=== PATIENT | male | born 1965 | race Caucasian/White ===

== ENCOUNTER 2016-05-12 05:26 | Inpatient (IN) | payer OTHER ==
[2016-05-12 06:27] LABS: ABSOLUTE EOSINOPHILS # (AUTO) 0.1 10^3/uL (0.0-0.6); ABSOLUTE LYMPHOCYTES (AUTO) 1.7 10^3/uL (0.5-4.7); ABSOLUTE NEUT (AUTO) 15.8 10^3/uL (1.7-8.2); BASOPHILS % (AUTO) 0.3 % (0-2); EOSINOPHILS % (AUTO) 0.5 % (0-6); HEMATOCRIT 38.2 % (37.9-51.0); HEMOGLOBIN 12.8 g/dL (13.5-17.0); HGB HCT DIFFERENCE 0.2; LYMPHOCYTES % (AUTO) 9.1 % (13-45); MEAN CORPUSCULAR HEMOGLOBIN 29.4 pg (27.0-33.4); MEAN CORPUSCULAR HGB CONC 33.4 g/dL (32.0-36.0); MEAN CORPUSCULAR VOLUME 88 fl (80-97); MONOCYTES % (AUTO) 5.5 % (3-13); RED BLOOD COUNT 4.34 10^6/uL (4.35-5.55); RED CELL DISTRIBUTION WIDTH 14.6 % (11.5-14.0); SEGMENTED NEUTROPHILS % (AUTO) 84.6 % (42-78); WHITE BLOOD COUNT 18.7 10^3/uL (4.0-10.5)
[2016-05-12 06:41] LABS: ALANINE AMINOTRANSFERASE 20 U/L (21-72); ALBUMIN 3.5 g/dL (3.5-5.0); ALKALINE PHOSPHATASE 88 U/L (38-126); ANION GAP 10 (5-19); ASPARTATE AMINO TRANSFERASE 16 U/L (17-59); BILIRUBIN,TOTAL 0.8 mg/dL (0.2-1.3); BLOOD UREA NITROGEN 21 mg/dL (7-20); CALCIUM 9.3 mg/dL (8.4-10.2); CARBON DIOXIDE 26 mmol/L (22-30); CHLORIDE 105 mmol/L (98-107); CREATINE KINASE 141 U/L (55-170); CREATININE RESULT 1.13 mg/dL (0.52-1.25); GLUCOSE 116 mg/dL (75-110); POTASSIUM 3.5 mmol/L (3.6-5.0); SODIUM 140.9 mmol/L (137-145); TOTAL PROTEIN 5.8 g/dL (6.3-8.2)
[2016-05-12 06:51] LABS: CREATINE KINASE MB 1.04 ng/mL (<4.55)
[2016-05-12 06:52] LABS: TROPONIN I < 0.012 ng/mL
[2016-05-12 07:10] LABS: APPEARANCE,URINE SLIGHTLY-CLOUDY; BILIRUBIN,URINE NEGATIVE (NEGATIVE); GLUCOSE, URINE NEGATIVE (NEGATIVE); KETONES,URINE NEGATIVE (NEGATIVE); LEUKOCYTE ESTERASE,URINE TRACE (NEGATIVE); NITRITE,URINE NEGATIVE (NEGATIVE); PROTEIN,URINE NEGATIVE (NEGATIVE); URINE SPECIFIC GRAVITY 1.018; UROBILINOGEN,URINE NEGATIVE mg/dL (<2.0)
--- NOTE | 2016-05-12 08:14 | EKG REPORT ---
SEVERITY:- ABNORMAL ECG - SINUS RHYTHM CONSIDER ANTEROSEPTAL INFARCT NONSPECIFIC T ABNORMALITIES, LATERAL LEADS BORDERLINE PROLONGED QT INTERVAL : Confirmed by: Rosibel Hercules MD 12-May-2016 08:13:52
[2016-05-12] MEDS ORDERED: NORMAL SALINE 1000 ML 1,000 ML IV ONE ×2 (08:32→11:47)
[2016-05-12] MEDS ORDERED: METOCLOPRAMIDE HCL ORAL SOLN 10 MG/10 ML UDCUP PO ONE (08:32)
[2016-05-12] MEDS ORDERED: LIDOCAINE 2% VISCOUS SOLN 20 ML UDCUP PO ONE (08:32)
[2016-05-12] MEDS ORDERED: MAG HYDROX/AL HYDROX/SIMETH SUSP 30 ML UDCUP PO ONE (08:32)
[2016-05-12] MEDS ORDERED: NEOSTIGMINE METHYLSULFATE 10 MG/10 ML VIAL ONE (09:27)
[2016-05-12] MEDS ORDERED: SUCCINYLCHOLINE CHLORIDE INJ 200 MG/10 ML VIAL ONE (09:27)
[2016-05-12] MEDS ORDERED: ROCURONIUM BROMIDE INJ 50 MG/5 ML VIAL IV ONE (09:27)
[2016-05-12] MEDS ORDERED: GLYCOPYRROLATE INJ 0.4 MG/2 ML VIAL ONE (09:27)
[2016-05-12 11:40] LABS: URINE BARBITURATES SCREEN NEGATIVE; URINE METHADONE SCREEN NEGATIVE; URINE OPIATES LOW UNCONFIRMED POSITIVE; URINE PHENCYCLIDINE SCREEN NEGATIVE
[2016-05-12] MEDS ORDERED: RINGERS SOLUTION,LACTATED 1,000 ML IV ONE ×2 (11:47→13:43)
[2016-05-12] MEDS ORDERED: PNEUMOCOCCAL 23-VAL P-SAC VAC 0.5 ML VIAL IM ONE (11:57)
[2016-05-12] MEDS ORDERED: AMPICILLIN SOD/SULBACTAM 3 GM VIAL IV ONE (11:58)
[2016-05-12] MEDS ORDERED: FENTANYL CITRATE INJ/PF 250 MCG/5 ML AMPULE ONE (12:07)
[2016-05-12] MEDS ORDERED: MIDAZOLAM 2 MG/2 ML INJ ONE (12:07)
[2016-05-12] MEDS ORDERED: DEXAMETHASONE SOD PHOSPHATE INJ 4 MG/1 ML VIAL ONE (12:08)
[2016-05-12] MEDS ORDERED: PROPOFOL INJ 200 MG/20 ML VIAL IV ONE (12:08)
[2016-05-12] MEDS ORDERED: ONDANSETRON HCL INJ/PF 4 MG/2 ML SDV ONE (12:08)
--- NOTE | 2016-05-12 12:08 | ER Document Report ---
ED General - General Chief Complaint: Shoulder Pain Stated Complaint: LEFT SHOULDER PAIN TRAVEL OUTSIDE OF THE [place] IN LAST 30 DAYS: No - HPI Patient complains to provider of: left shoulder pain abdominal pain syncopal episode Notes: Patient coming in pain he has syncopal episode earlier this morning. According to the family members patient was heard getting about bathroom may heard him fall found the patient on the ground. Patient states having left upper quadrant pain chest pain for last few days now pain is more severe. States also pains in left shoulder. Ration states has history of hypertension with unknown hypertensive medication. Otherwise states he smokes no alcohol. Patient has fevers chills nausea vomiting. Patient was given nitroglycerin no relief of his chest pain. Patient states dizziness upon moving. Denies any other travel denies any trauma suffered a syncopal episode. - Related Data Allergies/Adverse Reactions: No Known Allergies Allergy (Verified 10/29/15 18:44) Past Medical History - Social History Smoking Status: Unknown if Ever Smoked Family History: Reviewed & Not Pertinent - Past Medical History Cardiac Medical History: Reports: Hx Hypertension - Immunizations Immunizations up to date: No Hx Diphtheria, Pertussis, Tetanus Vaccination: No Review of Systems - Review of Systems Constitutional: No symptoms reported EENT: No symptoms reported Cardiovascular: Chest pain Respiratory: Short of breath Gastrointestinal: Abdominal pain Genitourinary: No symptoms reported Male Genitourinary: No symptoms reported Musculoskeletal: No symptoms reported Skin: No symptoms reported Hematologic/Lymphatic: No symptoms reported Neurological/Psychological: No symptoms reported -: Yes All other systems reviewed and negative Physical Exam - Vital signs Vitals: Temp Pulse Resp BP Pulse Ox 97.6 F 64 16 129/86 H 95 05/12/16 05:36 05/12/16 05:36 05/12/16 05:36 05/12/16 05:36 05/12/16 05:36 Interpretation: Normal - General General appearance: Appears well, Alert - HEENT Head: Normocephalic, Atraumatic Eyes: Normal Pupils: PERRL - Respiratory Respiratory status: No respiratory distress Chest status: Nontender Breath sounds: Normal Chest palpation: Normal - Cardiovascular Rhythm: Regular Heart sounds: Normal auscultation Murmur: No - Abdominal Inspection: Normal Distension: No distension Bowel sounds: Normal Tenderness: Tender - Moderate tenderness to palpation of left upper left lower quadrant voluntary guarding no rebound tenderness, Guarding. No: McBurney's point, Garcia's sign, Rebound Organomegaly: No organomegaly - Back Back: Normal, Nontender - Extremities General upper extremity: Normal inspection, Nontender, Normal color, Normal ROM , Normal temperature General lower extremity: Normal inspection, Nontender, Normal color, Normal ROM , Normal temperature, Normal weight bearing. No: Sunita's sign - Neurological Neuro grossly intact: Yes Cognition: Normal Orientation: AAOx4 [place] Coma Scale Eye Opening: Spontaneous [place] Coma Scale Verbal: Oriented Lewis Coma Scale Motor: Obeys Commands Lewis Coma Scale Total: 15 Speech: Normal Motor strength normal: LUE, RUE, LLE, RLE Sensory: Normal - Psychological Associated symptoms: Normal affect, Normal mood - Skin Skin Temperature: Warm Skin Moisture: Dry Skin Color: Normal Course - Re-evaluation Re-evalutation: 05/12/16 12:11 Notified by the radiologist about the patient's laceration. Call surgery. Surgery was available to the ER and reviewed patient CT scan. 05/12/16 14:29 Patient after patient's workup will be standard chest pain workup. Patient underwent EKG and troponin testing. Was concern about possible PE and possible abdominal pathology is patient does have significant tenderness in the left side initially concern about possible diverticulitis. Patient's d-dimer did return elevated therefore a CTA and a CT of the abdomen were performed. CTA was negative. Troponin was negative. CT of the abdomen revealed splenic rupture grade 3. After initial call the radiologist as stated above the did contact the surgeon on-call. Follow-up attention to the patient was given upon request patient was given pneumococcal and ordered meningococcal vaccines. After surgical evaluation recommended that the patient be taken directly to the OR. Preoperative antibiotics were given. Repeat CBC type and screen were performed prior to surgical evaluation. - Vital Signs Vital signs: Temp Pulse Resp BP Pulse Ox 98.9 F 71 16 147/74 H 94 05/12/16 13:38 05/12/16 14:08 05/12/16 14:08 05/12/16 14:08 05/12/16 14:08 - Laboratory Result Diagrams: 05/12/16 11:52 05/12/16 05:55 Laboratory results interpreted by me: 05/12/16 05/12/16 05/12/16 05:55 05:55 05:55 WBC 18.7 H RBC 4.34 L Hgb 12.8 L Hct RDW 14.6 H Seg Neutrophils % 84.6 H Lymphocytes % 9.1 L Absolute Neutrophils 15.8 H D-Dimer 0.93 H Potassium 3.5 L BUN 21 H Glucose 116 H AST 16 L ALT 20 L Total Protein 5.8 L Ur Leukocyte Esterase 05/12/16 05/12/16 06:40 11:52 WBC 18.3 H RBC 3.75 L Hgb 11.1 L Hct 33.1 L RDW 14.4 H Seg Neutrophils % 89.1 H Lymphocytes % 7.2 L Absolute Neutrophils 16.3 H D-Dimer Potassium BUN Glucose AST ALT Total Protein Ur Leukocyte Esterase TRACE H Critical Care Note - Critical Care Note Total time excluding time spent on procedures (mins): 40 Comments: Past and multiple evaluation patient with orthostatic hypotension with a splenic rupture Discharge - Discharge Clinical Impression: Splenic rupture Splenic laceration Qualifiers: Encounter type: initial encounter Qualified Code(s): S36.039A - Unspecified laceration of spleen, initial encounter Syncope Qualifiers: Syncope type: unspecified Qualified Code(s): R55 - Syncope and collapse Condition: Fair Disposition: ADMITTED INPATIENT Admitting Provider: Surgicalist - [facility] Admitted: OR
[2016-05-12] MEDS ORDERED: MORPHINE SULFATE 10 MG/ML INJ ONE (12:09)
[2016-05-12] MEDS ORDERED: BUPIVACAINE HCL 0.25 % INJ/PF (2.5 MG/1 ML) 30 ML VIAL ONE (12:21)
[2016-05-12 12:22] LABS: ABSOLUTE LYMPHOCYTES (AUTO) 1.3 10^3/uL (0.5-4.7); ABSOLUTE MONOCYTES (AUTO) 0.7 10^3/uL (0.1-1.4); ABSOLUTE NEUT (AUTO) 16.3 10^3/uL (1.7-8.2); BASOPHILS % (AUTO) 0.1 % (0-2); HEMATOCRIT 33.1 % (37.9-51.0); HEMOGLOBIN 11.1 g/dL (13.5-17.0); HGB HCT DIFFERENCE 0.2; LYMPHOCYTES % (AUTO) 7.2 % (13-45); MEAN CORPUSCULAR HEMOGLOBIN 29.5 pg (27.0-33.4); MEAN CORPUSCULAR HGB CONC 33.4 g/dL (32.0-36.0); MEAN CORPUSCULAR VOLUME 88 fl (80-97); MONOCYTES % (AUTO) 3.6 % (3-13); RED BLOOD COUNT 3.75 10^6/uL (4.35-5.55); RED CELL DISTRIBUTION WIDTH 14.4 % (11.5-14.0); SEGMENTED NEUTROPHILS % (AUTO) 89.1 % (42-78); WHITE BLOOD COUNT 18.3 10^3/uL (4.0-10.5)
--- NOTE | 2016-05-12 12:25 | PDOC H&P ---
History of Present Illness Patient complains of: Abdominal chest pain History of Present Illness: SARI BARRON is a 50 year old male who comes emergency department by ground rescue complaining of acute onset abdominal back and chest pain last night. He denies history of trauma. Additionally feeling fine. The pain has persisted. At home he had an episode of syncope. Emergent department he was worked up and found by CT scan of the chest to have no evidence of pulmonary embolus; a subsequent CT scan of the abdomen showed a ruptured spleen, with free peritoneal blood, and the arterial extravasation splenic hilum. Surgery was consulted, the patient was evaluated, and because of acute abdominal pain, significant intraperitoneal blood, tachycardia or proximally [address] scan findings consistent with a ruptured spleen, emergent exploratory laparotomy and splenectomy was recommended. Past Medical History Cardiac Medical History: Reports: Hypertension Social History Smoking Status: Current Every Day Smoker Family History Family History: Reviewed & Not Pertinent Parental Family History Reviewed: Yes Children Family History Reviewed: Yes Sibling(s) Family History Reviewed.: Yes Medication/Allergy Home Medications: Hydrocodone/Acetaminophen [Wharton 5-325 Tablet] 1 each PO Q6 #15 tablet 10/28/15 Oxycodone HCl/Acetaminophen [Percocet 5-325 mg Tablet] 1 - 2 tab PO Q4H PRN #25 tablet 10/29/15 Allergies/Adverse Reactions: No Known Allergies Allergy (Verified 10/29/15 18:44) Review of Systems Constitutional: PRESENT: as per HPI Eyes: ABSENT: visual disturbances Ears: ABSENT: hearing changes Cardiovascular: ABSENT: chest pain, dyspnea on exertion, edema, orthropnea, palpitations Neurological: ABSENT: abnormal gait, abnormal speech, confusion, dizziness, focal weakness, syncope Physical Exam Vital Signs: Temp Pulse Resp BP Pulse Ox 97.6 F 72 19 116/79 92 05/12/16 05:36 05/12/16 08:33 05/12/16 11:00 05/12/16 09:01 05/12/16 11:00 Intake & Output 05/11/16 05/12/16 05/13/16 06:59 06:59 06:59 Weight 73.2 kg General appearance: PRESENT: severe distress Head exam: PRESENT: normocephalic Eye exam: PRESENT: EOMI Ear exam: PRESENT: normal external ear exam Mouth exam: PRESENT: dry mucosa Neck exam: PRESENT: full ROM Respiratory exam: PRESENT: retraction Cardiovascular exam: PRESENT: tachycardia Pulses: PRESENT: normal carotid pulses, normal radial pulses GI/Abdominal exam: PRESENT: other - Patient has peritoneal signs with rigidity. The is extremely tender Rectal exam: PRESENT: deferred Gentrourinary exam: PRESENT: other - Deferred Extremities exam: PRESENT: other - Warm palpable dorsalis pedis pulses Neurological exam: PRESENT: alert, altered, awake Psychiatric exam: PRESENT: agitated Results Laboratory Results: 05/12/16 05:55 05/12/16 05/12/16 05/12/16 05:55 05:55 05:55 WBC 18.7 H RBC 4.34 L Hgb 12.8 L Hct 38.2 MCV 88 MCH 29.4 MCHC 33.4 RDW 14.6 H Plt Count 215 Seg Neutrophils % 84.6 H Lymphocytes % 9.1 L Monocytes % 5.5 Eosinophils % 0.5 Basophils % 0.3 Absolute Neutrophils 15.8 H Absolute Lymphocytes 1.7 Absolute Monocytes 1.0 Absolute Eosinophils 0.1 Absolute Basophils 0.0 Sodium 140.9 Potassium 3.5 L Chloride 105 Carbon Dioxide 26 Anion Gap 10 BUN 21 H Creatinine 1.13 Est GFR ( Amer) > 60 Est GFR (Non-Af Amer) > 60 Glucose 116 H Calcium 9.3 Total Bilirubin 0.8 AST 16 L ALT 20 L Alkaline Phosphatase 88 Total Protein 5.8 L Albumin 3.5 Lipase 35.5 Urine Color Urine Appearance Urine pH Ur Specific [place] Urine Protein Urine Glucose (UA) Urine Ketones Urine Blood Urine Nitrite Ur Leukocyte Esterase Urine WBC (Auto) Urine RBC (Auto) 05/12/16 06:40 WBC RBC Hgb Hct MCV MCH MCHC RDW Plt Count Seg Neutrophils % Lymphocytes % Monocytes % Eosinophils % Basophils % Absolute Neutrophils Absolute Lymphocytes Absolute Monocytes Absolute Eosinophils Absolute Basophils Sodium Potassium Chloride Carbon Dioxide Anion Gap BUN Creatinine Est GFR ( Amer) Est GFR (Non-Af Amer) Glucose Calcium Total Bilirubin AST ALT Alkaline Phosphatase Total Protein Albumin Lipase Urine Color YELLOW Urine Appearance SLIGHTLY-CLOUDY Urine pH 6.0 Ur Specific [place] 1.018 Urine Protein NEGATIVE Urine Glucose (UA) NEGATIVE Urine Ketones NEGATIVE Urine Blood NEGATIVE Urine Nitrite NEGATIVE Ur Leukocyte Esterase TRACE H Urine WBC (Auto) 2 Urine RBC (Auto) 0 05/12/16 05/12/16 05:55 05:55 Creatine Kinase 141 CK-MB (CK-2) 1.04 Troponin I < 0.012 Impressions: Chest X-Ray 05/12/16 08:23 IMPRESSION: NO ACUTE RADIOGRAPHIC FINDING IN THE CHEST. Chest/Abdomen CTA 05/12/16 09:04 IMPRESSION: 1. No PE or dissection. 2. COPD. Abdomen/Pelvis CT 05/12/16 09:07 IMPRESSION: Grade 3 splenic subcapsular hematoma. Assessment & Plan - Diagnosis (1) Splenic rupture Is this a current diagnosis for this admission?: YesPlan: 1. Patient has acute splenic rupture with hemoperitoneum, peritoneal signs on physical exam and hemodynamic lability. The patient needs to be taken to the operating room for emergent splenectomy. Was explained to the patient and his family, and I believe they understand and agree to proceed. 2. Will attempt to try patient with pneumococcal and meningococcal vaccinations preoperatively 3. Blood bank notified;type and crossmatch performed - Time Time Spent: 30 to 50 Minutes Critical Time spent with patient: 15-24 minutes Anticipated discharge: Home - Inpatient Certification Based on my medical assessment, after consideration of the patient's comorbidities, presenting symptoms, or acuity I expect that the services needed warrant INPATIENT care.: Yes I certify that my determination is in accordance with my understanding of Medicare's requirements for reasonable and necessary INPATIENT services [42 CFR 412.3e].: Yes Medical Necessity: Need for Pain Control, Need for IV Antibiotics, Need for Surgery
[2016-05-12 12:27] LABS: PROTHROMBIN TIME 14.4 SEC (11.4-15.4)
[2016-05-12 12:28] LABS: PARTIAL THROMBOPLASTIN TIME 24.3 SEC (23.5-35.8)
[2016-05-12] MEDS ORDERED: CEFAZOLIN INJ 1 GM VIAL ONE (12:51)
[2016-05-12] MEDS ORDERED: DIPHENHYDRAMINE HCL 50 MG/ML VIAL IV PRN (13:07)
[2016-05-12] MEDS ORDERED: MORPHINE SULFATE 10 MG/ML INJ IV PRN (13:07)
[2016-05-12] MEDS ORDERED: MEPERIDINE HCL/PF INJ 25 MG/1 ML DISP.SYRIN IV PRN (13:07)
[2016-05-12] MEDS ORDERED: FENTANYL CITRATE INJ/PF 100 MCG/2 ML AMPUL IV PRN ×3 (13:07)
[2016-05-12] MEDS ORDERED: PROMETHAZINE HCL INJ 25 MG/1 ML VIAL IV PRN ×2 (13:07)
[2016-05-12] MEDS ORDERED: BUPIVACAINE HCL 0.25% /EPINEPHRINE INJ/PF 30 ML SDV ONE (13:18)
[2016-05-12] MEDS ORDERED: PHARMACY COMMUNICATION ORDER MC NR (13:45)
--- NOTE | 2016-05-12 13:50 | Operative Report ---
Operative Report DATE OF SURGERY: 05/12/16 PREOPERATIVE DIAGNOSIS: Ruptured spleen with hemoperitoneum POSTOPERATIVE DIAGNOSIS: Same OPERATION: 1. Exploratory laparotomy. 2. Open splenectomy. 3. A segment of left subphrenic drain SURGEON: MASSIEL W[place] ANESTHESIA: GA TISSUE REMOVED OR ALTERED: Spleen COMPLICATIONS: None ESTIMATED BLOOD LOSS: 2 L of blood removed from the abdominal cavity INTRAOPERATIVE FINDINGS: See below PROCEDURE: The patient was seen in the emergency department and brought directly to the preoperative holding area and then the main operating room for emergent exploratory laparotomy, splenectomy due to ruptured spleen with hemoperitoneum. The patient underwent general anesthesia, oral gastric then nasogastric tube insertion, Luque catheter insertion. Patient had additional left arm referral IV established. The abdomen was exposed, hair clipped, prepped and draped sterile fashion in anticipation of exploratory laparotomy Surgical plan surgical timeout were conducted. The abdomen was opened through a standard midline incision and the peritoneal cavity entered sharply. There was a significant amount of clot and old blood in the peritoneal cavity. We brought out some of the loose clots, packed off the abdomen, then began inspection of the peritoneal cavity methodically. There was approximately 1 1/2-2 L of blood and clot evacuated from the peritoneal cavity. Bookwalter retractor was established. The findings were significant for active meeting coming from the ruptured surface of the spleen, medial anterior pole. Gentle traction was placed on the spleen, retracting it medially, and the hilar components were clamped off with 3 Ernestine clamps. The spleen was amputated with scissors and passed off to pathology. The contents within each clamped were carefully inspected. There was no evidence of distal pancreas or greater curvature of the stomach within the clamps. The pedicles were ligated with 0 silk and allowed to retract. We now irrigated the peritoneal cavity with 4 L of ensuring all clot evacuated. Furthermore inspection of the right and left lobes of the liver transverse colon and entire small bowel revealed no pathology. There was no evidence of pus, tumor or clinical evidence of trauma. We placed a drain through the left upper quadrant abdominal wall, large Randall, secured to skin with 2-0 Prolene suture. This was hooked to a bulb suction. Sponge count were now correct. The pedicles in the left upper quadrant and there is no evidence of bleeding. No Hemostatic agents were used. Midline wound closed with 2 double-stranded #1 PDS sutures and skin approximated with dequan. And the skin anesthetized with quarter percent Marcaine. Postop tolerated the procedure; taken to the recovery room in stable condition.
[2016-05-12] MEDS ORDERED: MENINGOCOCCAL VAC A,C,Y,W-135 DIP/PF 0.5 ML VIAL IM PRN (15:00)
--- NOTE | 2016-05-12 16:32 | EKG REPORT ---
SEVERITY:- BORDERLINE ECG - SINUS RHYTHM PROBABLE LEFT ATRIAL ABNORMALITY BORDERLINE T ABNORMALITIES, INFERIOR LEADS : Confirmed by: Rosibel Hercules MD 12-May-2016 16:32:27
[2016-05-12] MEDS ORDERED: INFLUENZA ADLT QUAD (36MOS+) 2016-17 VAC 0.5 ML SYR IM PRN (17:47)
[2016-05-13] MEDS: MORPHINE SULFATE 10 MG/ML INJ IV PRN ×4 (02:24→19:29)
--- NOTE | 2016-05-13 10:13 | PDOC PROGRESS REPORT ---
Subjective Progress Note for:: 05/13/16 Subjective:: C/O PAIN, UNDER CONTROL. NO NAUSEA Physical Exam Vital Signs: Temp Pulse Resp BP Pulse Ox 98.0 F 88 18 138/90 H 93 05/13/16 07:57 05/13/16 07:57 05/13/16 07:57 05/13/16 07:57 05/13/16 07:57 Intake & Output 05/12/16 05/13/16 05/14/16 06:59 06:59 06:59 Intake Total 6473 Output Total 2815 Balance 3658 Weight 76.2 kg GI/Abdominal exam: PRESENT: other - SOFT ABDOMEN Results Impressions: Chest X-Ray 05/12/16 08:23 IMPRESSION: NO ACUTE RADIOGRAPHIC FINDING IN THE CHEST. Chest/Abdomen CTA 05/12/16 09:04 IMPRESSION: 1. No PE or dissection. 2. COPD. Abdomen/Pelvis CT 05/12/16 09:07 IMPRESSION: Grade 3 splenic subcapsular hematoma. KUB X-Ray 05/12/16 13:42 IMPRESSION: Post splenectomy. Nasogastric tube tip and side port in the stomach. Left upper quadrant drain in place. Luque catheter in the bladder. Nonobstructive bowel gas pattern. Assessment & Plan - Plan Summary Plan Summary: POST OP S/P splenectomy PO clears Ambulate
[2016-05-13 11:31] LABS: HEMATOCRIT 26.9 % (37.9-51.0); HGB HCT DIFFERENCE 0.1; MEAN CORPUSCULAR HEMOGLOBIN 29.6 pg (27.0-33.4); MEAN CORPUSCULAR HGB CONC 33.5 g/dL (32.0-36.0); MEAN CORPUSCULAR VOLUME 88 fl (80-97); RED BLOOD COUNT 3.04 10^6/uL (4.35-5.55); RED CELL DISTRIBUTION WIDTH 14.4 % (11.5-14.0); WHITE BLOOD COUNT 22.5 10^3/uL (4.0-10.5)
[2016-05-13 11:47] LABS: ANION GAP 9 (5-19); BLOOD UREA NITROGEN 26 mg/dL (7-20); CALCIUM 8.8 mg/dL (8.4-10.2); CARBON DIOXIDE 27 mmol/L (22-30); CHLORIDE 106 mmol/L (98-107); CREATININE RESULT 1.12 mg/dL (0.52-1.25); GLUCOSE 102 mg/dL (75-110); POTASSIUM 3.6 mmol/L (3.6-5.0); SODIUM 141.5 mmol/L (137-145)
[2016-05-13 11:55] LABS: BASOPHILS % (MANUAL) 0 % (0-2); EOSINOPHILS % (MANUAL) 0 % (0-6); LYMPHOCYTES % (MANUAL) 11 % (13-45); TOTAL CELLS COUNTED 100
[2016-05-13 11:57] LABS: HYPOCHROMASIA SLIGHT; TOXIC GRANULATION 1+
[2016-05-14] MEDS: MORPHINE SULFATE 10 MG/ML INJ IV PRN ×4 (01:41→19:50)
[2016-05-14 10:28] LABS: ABSOLUTE BASOPHILS # (AUTO) 0.1 10^3/uL (0.0-0.2); ABSOLUTE EOSINOPHILS # (AUTO) 0.1 10^3/uL (0.0-0.6); ABSOLUTE LYMPHOCYTES (AUTO) 2.1 10^3/uL (0.5-4.7); ABSOLUTE MONOCYTES (AUTO) 2.3 10^3/uL (0.1-1.4); ABSOLUTE NEUT (AUTO) 14.2 10^3/uL (1.7-8.2); BASOPHILS % (AUTO) 0.3 % (0-2); EOSINOPHILS % (AUTO) 0.3 % (0-6); HEMATOCRIT 24.6 % (37.9-51.0); HEMOGLOBIN 8.3 g/dL (13.5-17.0); HGB HCT DIFFERENCE 0.3; LYMPHOCYTES % (AUTO) 11.1 % (13-45); MEAN CORPUSCULAR HEMOGLOBIN 29.7 pg (27.0-33.4); MEAN CORPUSCULAR HGB CONC 33.6 g/dL (32.0-36.0); MEAN CORPUSCULAR VOLUME 88 fl (80-97); MONOCYTES % (AUTO) 12.5 % (3-13); RED BLOOD COUNT 2.79 10^6/uL (4.35-5.55); RED CELL DISTRIBUTION WIDTH 14.6 % (11.5-14.0); SEGMENTED NEUTROPHILS % (AUTO) 75.8 % (42-78); WHITE BLOOD COUNT 18.7 10^3/uL (4.0-10.5)
--- NOTE | 2016-05-14 13:15 | PDOC PROGRESS REPORT ---
Physical Exam Vital Signs: Temp Pulse Resp BP Pulse Ox 98.8 F 90 18 150/88 H 93 05/14/16 07:50 05/14/16 07:50 05/14/16 07:50 05/14/16 07:50 05/14/16 07:50 Intake & Output 05/13/16 05/14/16 05/15/16 06:59 06:59 06:59 Intake Total 6473 2727 Output Total 2815 780 Balance 3658 1947 Weight 76.2 kg 74.8 kg Results Laboratory Results: 05/14/16 10:19 05/13/16 10:50 05/14/16 10:19 WBC 18.7 H RBC 2.79 L Hgb 8.3 L Hct 24.6 L MCV 88 MCH 29.7 MCHC 33.6 RDW 14.6 H Plt Count 242 Seg Neutrophils % 75.8 Lymphocytes % 11.1 L Monocytes % 12.5 Eosinophils % 0.3 Basophils % 0.3 Absolute Neutrophils 14.2 H Absolute Lymphocytes 2.1 Absolute Monocytes 2.3 H Absolute Eosinophils 0.1 Absolute Basophils 0.1 Impressions: Chest X-Ray 05/12/16 08:23 IMPRESSION: NO ACUTE RADIOGRAPHIC FINDING IN THE CHEST. Chest/Abdomen CTA 05/12/16 09:04 IMPRESSION: 1. No PE or dissection. 2. COPD. Abdomen/Pelvis CT 05/12/16 09:07 IMPRESSION: Grade 3 splenic subcapsular hematoma. KUB X-Ray 05/12/16 13:42 IMPRESSION: Post splenectomy. Nasogastric tube tip and side port in the stomach. Left upper quadrant drain in place. Luque catheter in the bladder. Nonobstructive bowel gas pattern. Assessment & Plan - Plan Summary Plan Summary: stable s.p splenectomy Ambulate
[2016-05-14] MEDS: ONDANSETRON HCL INJ/PF 4 MG/2 ML SDV IV PRN (14:58)
[2016-05-15] MEDS: MORPHINE SULFATE 10 MG/ML INJ IV PRN ×3 (00:38→20:55)
[2016-05-15] MEDS: ONDANSETRON HCL INJ/PF 4 MG/2 ML SDV IV PRN (06:10)
--- NOTE | 2016-05-15 14:02 | PDOC PROGRESS REPORT ---
Subjective Progress Note for:: 05/15/16 Subjective:: feeling better no nausea passing flatus, no bm yet Physical Exam Vital Signs: Temp Pulse Resp BP Pulse Ox 98.5 F 82 18 141/73 H 94 05/15/16 07:56 05/15/16 07:56 05/15/16 07:56 05/15/16 07:56 05/15/16 07:56 Intake & Output 05/14/16 05/15/16 05/16/16 06:59 06:59 06:59 Intake Total 2727 1896 Output Total 780 360 Balance 1947 1536 Weight 74.8 kg Results Laboratory Results: 05/14/16 10:19 05/13/16 10:50 Impressions: Chest X-Ray 05/12/16 08:23 IMPRESSION: NO ACUTE RADIOGRAPHIC FINDING IN THE CHEST. Chest/Abdomen CTA 05/12/16 09:04 IMPRESSION: 1. No PE or dissection. 2. COPD. Abdomen/Pelvis CT 05/12/16 09:07 IMPRESSION: Grade 3 splenic subcapsular hematoma. KUB X-Ray 05/12/16 13:42 IMPRESSION: Post splenectomy. Nasogastric tube tip and side port in the stomach. Left upper quadrant drain in place. Luque catheter in the bladder. Nonobstructive bowel gas pattern. Assessment & Plan - Plan Summary Plan Summary: s/p splenectomy Chance resolving Advance diet Possible DC tomorrow.
[2016-05-16] MEDS ORDERED: TRAMADOL HCL 50 MG TABLET PO PRN (20:24)
[2016-05-16] MEDS ORDERED: MENINGOCOCCAL VAC A,C,Y,W-135 DIP/PF 0.5 ML VIAL IM PRN (20:29)
[2016-05-16] MEDS ORDERED: HAEMPH B POLYSAC CONJ-MENIN/PF 0.5 ML VIAL IM PRN (20:34)
[2016-05-16 20:58] VITALS: BP 137/48
--- NOTE | 2016-05-16 21:54 | PDOC DISCHARGE SUMMARY ---
General - Admit/Disc Date/PCP Admission Date/Primary Care Provider: 05/12/16 12:25 Discharge Date: 05/16/16 - Additional Information Resuscitation Status: Full Code Discharge Diet: Regular Discharge Activity: No Lifting Over 10 Pounds, Walk Frequently Home Medications: Amlodipine Besylate [Norvasc 10 mg Tablet] 10 mg PO DAILY 05/13/16 Lisinopril/Hydrochlorothiazide [Lisinopril-Hctz 20-25 mg Tab] 1 each PO QAM Tramadol HCl [Ultram 50 mg Tablet] 50 mg PO Q6HP PRN #20 tablet 05/16/16 History of Present Illness History of Present Illness: SARI BARRON is a 50 year old male who comes emergency department by ground rescue complaining of acute onset abdominal back and chest pain last night. He denies history of trauma. Additionally feeling fine. The pain has persisted. At home he had an episode of syncope. Emergent department he was worked up and found by CT scan of the chest to have no evidence of pulmonary embolus; a subsequent CT scan of the abdomen showed a ruptured spleen, with free peritoneal blood, and the arterial extravasation splenic hilum. Surgery was consulted, the patient was evaluated, and because of acute abdominal pain, significant intraperitoneal blood, tachycardia or proximally [address] scan findings consistent with a ruptured spleen, emergent exploratory laparotomy and splenectomy was recommended. Hospital Course Hospital Course: Patient was noted on 05/12/2016 and taken to the operative suite. Exploratory laparotomy was performed and a ruptured spleen with a large amount of intraperitoneal blood was found. The spleen was resected. The patient was admitted to the floor postoperatively. Patient did well. Diet was gradually advanced. At the time of discharge, patient was ambulating, tolerating diet and had normal bowel function and had not taken pain medication in almost a day. Patient was sent home with tramadol. Patient received Pneumovax 23, Haemophilus influenza vaccine, meningococcal vaccine and flu shot prior to discharge. Follow-up was scheduled in surgery clinic in 7-10 days. Patient was advised to follow-up with his primary care provider for his hypertension as well as possible high platelet counts and potential need for aspirin. Patient was discharged on 05/16/2016. Physical Exam Vital Signs: Temp Pulse Resp BP Pulse Ox 98.7 F 79 16 141/76 H 99 05/16/16 12:11 05/16/16 12:11 05/16/16 12:11 05/16/16 12:11 05/16/16 12:11 Intake & Output 05/15/16 05/16/16 05/17/16 06:59 06:59 06:59 Intake Total 1896 1050 650 Output Total 360 360 Balance 1536 690 650 General appearance: PRESENT: no acute distress, well-developed, well-nourished Eye exam: PRESENT: EOMI Mouth exam: PRESENT: tongue midline Respiratory exam: PRESENT: unlabored GI/Abdominal exam: PRESENT: soft, other - Incision healing nicely with dequan. No evidence of infection. Waffle dressing placed.. ABSENT: distended, tenderness Neurological exam: PRESENT: alert, oriented to situation Psychiatric exam: PRESENT: appropriate affect, normal mood Skin exam: ABSENT: jaundice Results Laboratory Results: 05/14/16 10:19 05/13/16 10:50 Impressions: Chest X-Ray 05/12/16 08:23 IMPRESSION: NO ACUTE RADIOGRAPHIC FINDING IN THE CHEST. Chest/Abdomen CTA 05/12/16 09:04 IMPRESSION: 1. No PE or dissection. 2. COPD. Abdomen/Pelvis CT 05/12/16 09:07 IMPRESSION: Grade 3 splenic subcapsular hematoma. KUB X-Ray 05/12/16 13:42 IMPRESSION: Post splenectomy. Nasogastric tube tip and side port in the stomach. Left upper quadrant drain in place. Luque catheter in the bladder. Nonobstructive bowel gas pattern. Plan Discharge Plan: Discussed splenic functions. Discussed possibility of high platelets. Instructed to follow up with primary care provider. Discussed protection against encapsuling bacteria. Given appropriate vaccines and flu shot and also discussed why he needed them. Walk frequently. Deep breathe and cough. No lifting over 10 pounds until cleared by Dr. Houser. Healthy diet, as discussed. No smoking. Shower daily. Wear abdominal binder except when showering. Follow up in clinic in 7- 10 days or sooner if problems arise.
== END 2016-05-16 20:55 | disposition home or self-care (01) | DRG 799 ==
LOC: ER 05:26 → EH 12:25 → 4S 15:32
PROVIDERS: ADMIT Surgery; ATTEND Surgery
PROC: 0W9F00Z Drainage of Abdominal Wall with Drainage Device, Open Approach (ICD-10-PCS; 2016-05-12)
PROC: 0D9670Z Drainage of Stomach with Drainage Device, Via Natural or Artificial Opening (ICD-10-PCS; 2016-05-12)
PROC: 07TP0ZZ Resection of Spleen, Open Approach (ICD-10-PCS; principal; 2016-05-12 12:30)
PROC: 3E0234Z Introduction of Serum, Toxoid and Vaccine into Muscle, Percutaneous Approach (ICD-10-PCS; 2016-05-16)
PROC: 3E0234Z Introduction of Serum, Toxoid and Vaccine into Muscle, Percutaneous Approach (ICD-10-PCS; 2016-05-16)
DX: D73.5 Infarction of spleen (principal); K66.1 Hemoperitoneum; J44.9 Chronic obstructive pulmonary disease, unspecified; I10 Essential (primary) hypertension; F17.210 Nicotine dependence, cigarettes, uncomplicated; Z23 Encounter for immunization; Z79.899 Other long term (current) drug therapy
CPT/HCPCS: 36415; 71010; 71275; 74000; 74177; 790; 80048; 80053; 80307; 81001; 82550; 82553; 83690; 84484; 85025; 85379; 85610; 85730; 86850; 86900; 86901; 88305; 90471; 90647; 90686; 90732; 90734; 93005; 93010; 94799; 96361; 96365; 99291; G0009; J0295; J0330; J0690; J1100; J2250; J2270; J2405; J2704; J3010; J3490; J7030; J7120

== ENCOUNTER → 2016-06-13 | Outpatient (CLI) | payer OTHER ==
[2016-06-13 14:57] LABS: ABSOLUTE BASOPHILS # (AUTO) 0.1 10^3/uL (0.0-0.2); ABSOLUTE EOSINOPHILS # (AUTO) 0.2 10^3/uL (0.0-0.6); ABSOLUTE LYMPHOCYTES (AUTO) 2.4 10^3/uL (0.5-4.7); ABSOLUTE MONOCYTES (AUTO) 0.9 10^3/uL (0.1-1.4); ABSOLUTE NEUT (AUTO) 4.3 10^3/uL (1.7-8.2); EOSINOPHILS % (AUTO) 2.9 % (0-6); HEMOGLOBIN 11.8 g/dL (13.5-17.0); HGB HCT DIFFERENCE -0.6; LYMPHOCYTES % (AUTO) 30.7 % (13-45); MEAN CORPUSCULAR HEMOGLOBIN 28.2 pg (27.0-33.4); MEAN CORPUSCULAR HGB CONC 32.6 g/dL (32.0-36.0); MEAN CORPUSCULAR VOLUME 86 fl (80-97); MONOCYTES % (AUTO) 11.4 % (3-13); RED BLOOD COUNT 4.17 10^6/uL (4.35-5.55); RED CELL DISTRIBUTION WIDTH 14.8 % (11.5-14.0)
[2016-06-13 15:49] LABS: ERYTHROCYTE SEDIMENTATION RATE 12 mm/hr (0-15)
== END ==
LOC: LAB 14:36
PROVIDERS: ATTEND Internal Medicine Cardiovascular Disease
DX: I38 Endocarditis, valve unspecified (principal)
CPT/HCPCS: 36415; 83880; 85025; 85652; 87040